=== PATIENT | female | born 1945 | race Two or more races ===

== ENCOUNTER 2021-08-25 11:07 | Emergency (ER) | payer MEDICARE, OTHER ==
[~2021-08-25] VITALS: Ht 152.4 cm; Wt 85.8 kg
--- NOTE | 2021-08-25 11:30 | NUR ---
BIBFRIEND FOR C/O LEFT WRIST PAIN 12/20 AND SWELLING S/P TRIP AND FALL TODAY. LANDED ON LEFT ARM. -KO. -LOC. ABLE TO MOVE FINGERS. WILL CONTINUE TO MONITOR THE PATIENT.
[2021-08-25] MEDS ORDERED: ONDANSETRON 4 MG TAB.RAPDIS PO ONE (12:00)
[2021-08-25] MEDS ORDERED: MORPHINE SULFATE INJ 2 MG/ML DISP.SYRIN IM ONE (12:00)
[2021-08-25] MEDS ORDERED: ONDANSETRON 4 MG TAB.RAPDIS ONE (12:01)
[2021-08-25] MEDS ORDERED: MORPHINE SULFATE INJ 4 MG/ML DISP.SYRIN ONE (12:01)
[2021-08-25] MEDS ORDERED: PROPOFOL 20 ML IV ONE (12:20)
[2021-08-25] MEDS ORDERED: PROPOFOL 200 MG/20 ML VIAL IV ONE (12:30)
[2021-08-25] MEDS ORDERED: TRAM50TA2 PO ×2 (13:40→14:27)
--- NOTE | 2021-08-25 14:39 | NUR ---
IV removed. Catheter intact and site benign. Pressure and 4x4 applied to site. No bleeding noted.Patient discharged to home in stable condition. Written and verbal after care instructions given. Patient verbalizes understanding of instruction.
[2021-08-25 14:40] VITALS: BP 148/80
== END 2021-08-25 14:40 | disposition home or self-care (01) ==
LOC: ER 11:26
DX: S52.502A Unspecified fracture of the lower end of left radius, initial encounter for closed fracture (principal); S52.612A Displaced fracture of left ulna styloid process, initial encounter for closed fracture; W01.0XXA Fall on same level from slipping, tripping and stumbling without subsequent striking against object, initial encounter; Y93.89 Activity, other specified; Y92.89 Other specified places as the place of occurrence of the external cause; Y99.8 Other external cause status
CPT/HCPCS: 25605; 73090; 73100; 73110; 96372; 99152; 99285; J2270; J2704; Q0162; G0500